=== PATIENT | female | born 2000 | race Caucasian/White ===

== ENCOUNTER 2023-06-14 16:34 | Emergency (ER) | payer BC, SELFPAY ==
[2023-06-14 16:38] VITALS: BP 143/91
--- NOTE | 2023-06-14 17:28 | ED.GENMED ---
History of Present Illness
General
Chief Complaint: Throat Problem
Source: patient and family
Exam Limitations: none
Time Seen by Provider: 06/14/23 17:06
Nursing documentation reviewed up to this point in time: agreed with
Travel History
Have you had any contact with someone who has COVID-19?: No
Do you have any symptoms of coronavirus? Fever > 100 degrees, chills, cough, shortness of breath, sore throat, loss of taste or smell, muscle aches, or headache?: No
History of Present Illness
History of Present Illness:
23-year-old female presenting to the emergency department today with concerns of recurrence of sore throat. Seen at the urgent care today had a rapid strep test which was positive. She has had confirmed strep pharyngitis 3 additional times since
the last 2 months. Previously treated with penicillin second penicillin third time with amoxicillin. She claims that she is able to swallow denies specific fevers today symptoms started this morning.
Review of Systems
Review of Systems
Allergies reviewed?: Yes
All Other Systems: ROS reviewed and negative except as documented in HPI and ROS
Phy Exam
Physical Exam
Physical Exam:
GENERAL: Alert , in no apparent distress
EYE: pupils equal and reactive
NECK: Supple, no significant adenopathy.
ENT: Swollen tonsils bilaterally small mount of exudate uvula midline grossly patent airway o/p clr, mmm.
CARDIAC: Regular rate and rhythm .
LUNGS: Clear breath sounds bilaterally, no acute respiratory distress, no wheezes/rales/rhonchi
ABDOMEN: Soft, without focal tenderness, no r/g, no cvat
NEUROLOGICAL: Alert and oriented, no focal neuro deficits
SKIN: Warm and dry, skin intact.
MUSCULOSKELETAL: No edema, well perfused.
PSYCH: Normal and appropriate interaction.
Course
Orders/Labs/Results
Orders:
Orders
06/14/23 17:19
Amoxicillin 875 mg/Clav 125 mg [Augmentin 875 mg/125 mg] 1 tablet PO NOW STA
Dexamethasone [Decadron] 10 mg PO NOW STA
Vital Signs
Initial and Last Documented VS:
Initial Vital Signs
Temp Pulse Resp BP Pulse Ox
98.2 F 93 16 143/91 98
06/14/23 16:38 06/14/23 16:38 06/14/23 16:38 06/14/23 16:38 06/14/23 16:38
Last Documented Vital Signs
Temp Pulse Resp BP Pulse Ox
98.2 F 93 16 143/91 98
06/14/23 16:38 06/14/23 16:38 06/14/23 16:38 06/14/23 16:38 06/14/23 16:38
MDM/Problems Addressed
MDM/Problems Addressed:
23-year-old female presenting to the emergency department today with concerns of throat discomfort diagnosed with strep throat this morning in urgent care initially started on azithromycin. Here uvula is midline tonsils swollen. Patient is
afebrile vital signs normal tolerating by mouth. Case discussed with ENT that quested patient be started on Augmentin considering she has not been on this before was also given a steroid for symptoms and advised for close outpatient follow-up
return precautions given.
*Critical Care Note
Total Time (30-74mins, 75-104mins- exclusive of procedures): Not Applicable
ED Attending Note
-
Portions of this chart may have been created with voice recognition software.� Occasional wrong word or��sound alike� substitutions may have occurred due to the inherent limitations of voice recognition software.
Discharge Plan
Departure
Patient Disposition: Home (Routine Discharge)
Date of Disposition: 06/14/23
Time of Disposition: 17:30
Patient with high blood pressure during this ER visit?: No
Condition: Good
Covid-19: Not Applicable
Discharge Problem:
Acute recurrent streptococcal tonsillitis
Instructions: Strep Throat (DC)
Prescriptions:
New
amoxicillin-pot clavulanate 875-125 mg tablet
1 tab PO BID 14 Days Qty: 28 0RF
prednisone 20 mg tablet
40 mg PO DAILY 4 Days Qty: 8 0RF
Referrals:
César George DO [Family Provider] -
Rick Rowan MD [Active] - Follow up in 5-7 days
Activity Restrictions/Additional Instructions:
You came to the emergency department today with concerns of recurrent strep throat. Please help closely with the ENT doctor. Please take Augmentin twice daily for the next 14 days as well as prednisone 40 mg once daily for the next 4 days. Return
to the emergency department for any worsening, new or concerning symptoms.
Interventions
Interventions:
*ED COVID-19 Vaccine History Last Done: 06/14/23 16:38
[2023-06-14] MEDS: DECADRON 10 MG PO (17:57)
[2023-06-14] MEDS: AUGMENTIN 875 MG/125 MG 1 TABLET PO (17:57)
== END 2023-06-14 18:17 | disposition home or self-care (01) ==
LOC: EMR 16:34
PROVIDERS: EMERGENCY PHYSICIAN Emergency Medicine; FAMILY PHYSICIAN Family Medicine
DX: J03.00 Acute streptococcal tonsillitis, unspecified (principal)
CPT/HCPCS: 99283